=== PATIENT | male | born 1970 ===

== ENCOUNTER 2020-02-25 18:22 | Inpatient (IN) | payer SELFPAY ==
[~2020-02-25] VITALS: Ht 188 cm; Wt 97.0 kg
[~2020-02-25 18:22] MED LIST: AUGMENTIN875 MG OR
--- NOTE | 2020-02-25 18:50 | NUR ---
PATIENT TO ROOM VIA WHEELCHAIR.
--- NOTE | 2020-02-25 19:47 | NUR ---
SWABS OBTAINED. BCX1. TOLERATED WELL.
[2020-02-25 20:22] LABS: HEMATOCRIT 46.1 % (39.0-50.0); HEMOGLOBIN 14.7 g/dl (14.0-18.0); IMMATURE GRANULOCYTES 0.2 % (0.0-5.0); MEAN CELL VOLUME 80.7 fL CALC (80.0-100.0); MEAN CORPUSCULAR HGB 25.7 pG CALC (26.0-32.0); MEAN CORPUSCULAR HGB CONC 31.9 g/dL CAL (32.0-36.0); RED BLOOD COUNT 5.71 mill/uL (4.70-6.10); RED CELL DISTRI WIDTH 12.1 % (11.5-15.5)
[2020-02-25 20:23] LABS: URINE BILIRUBIN - DIPSTICK NEGATIVE (NEGATIVE); URINE BLOOD DIPSTICK NEGATIVE (NEGATIVE); URINE COLOR YELLOW; URINE GLUCOSE - DIPSTICK 500 mg/dL (NEGATIVE); URINE KETONE 15 mg/dL (NEGATIVE); URINE LEUK ESTERASE NEGATIVE (NEGATIVE); URINE NITRITE - DIPSTICK NEGATIVE (Negative); URINE PH 5.5 (4.5-8.0); URINE PROTEIN - DIPSTICK 100 mg/dL (NEG-TRACE); URINE SPECIFIC GRAVITY >=1.030; URINE UROBILINOGEN - DIPSTICK 0.2 E.U./dL (0.2)
[2020-02-25 20:34] LABS: URINE RBC 0-2 RBC/hpf (0-5); URINE WBC 0-2 WBC/hpf (0-5)
[2020-02-25 20:38] LABS: ALBUMIN 3.8 g/dL (3.2-5.0); ALKALINE PHOSPHATASE 86 u/l (38-126); ANION GAP 14 (6-22 (CALC)); BILIRUBIN, TOTAL 0.7 mg/dL (0.0-1.4); BUN 18 mg/dL (9-20); BUN/CREATININE RATIO 15 (12-20 (CALC)); CARBON DIOXIDE 27 mmol/l (22-30); CHLORIDE 91 mmol/l (95-108); CREATININE 1.2 mg/dL (0.7-1.3); GFR > 60 ML/MIN (>=60 (CALC)); GFR FOR AFR.AMER. > 60 ML/MIN (>=60 (CALC)); POTASSIUM 4.8 mmol/l (3.5-5.1); SGOT/AST 34 u/l (17-59); SODIUM 127 mmol/l (137-146); TOTAL PROTEIN 7.4 g/dL (6.3-8.2)
--- NOTE | 2020-02-25 21:40 | NUR ---
RETURNED FROM X-RAY. NO CHANGE IN EXAM.
--- NOTE | 2020-02-25 22:30 | NUR ---
NO C/O.VSS. RESTING MORE COMFORTABLY.
--- NOTE | 2020-02-26 00:30 | NUR ---
AROUSES EASILY TO VOICE. NO C/O.
--- NOTE | 2020-02-26 01:30 | NUR ---
TEMP REMAINS NORMAL. VSS. SLEEPING QUIETLY.
[2020-02-26] MEDS ORDERED: AMOXICILLIN500 M2 PO (02:37)
--- NOTE | 2020-02-26 03:16 | NUR ---
SLEEPING. NAD. RESPIRATIONS EVEN AND UNLABORED,
--- NOTE | 2020-02-26 05:16 | NUR ---
LABS DRAWN AND TAKEN TO DEPT. PT UP TO BSC. STATES FEELING BETTER.
[2020-02-26 05:59] LABS: HEMATOCRIT 43.2 % (39.0-50.0); HEMOGLOBIN 13.7 g/dl (14.0-18.0); IMMATURE GRANULOCYTES 0.4 % (0.0-5.0); MEAN CELL VOLUME 81.8 fL CALC (80.0-100.0); MEAN CORPUSCULAR HGB 25.9 pG CALC (26.0-32.0); MEAN CORPUSCULAR HGB CONC 31.7 g/dL CAL (32.0-36.0); NEUT# 2.22 thou/uL (1.82-7.42); RED BLOOD COUNT 5.28 mill/uL (4.70-6.10); RED CELL DISTRI WIDTH 12.1 % (11.5-15.5)
[2020-02-26 06:30] LABS: ALBUMIN 3.2 g/dL (3.2-5.0); ALKALINE PHOSPHATASE 70 u/l (38-126); ANION GAP 11 (6-22 (CALC)); BILIRUBIN, TOTAL 0.6 mg/dL (0.0-1.4); BUN 16 mg/dL (9-20); BUN/CREATININE RATIO 17 (12-20 (CALC)); CARBON DIOXIDE 28 mmol/l (22-30); CHLORIDE 95 mmol/l (95-108); GFR > 60 ML/MIN (>=60 (CALC)); GFR FOR AFR.AMER. > 60 ML/MIN (>=60 (CALC)); POTASSIUM 4.3 mmol/l (3.5-5.1); SGOT/AST 30 u/l (17-59); SODIUM 130 mmol/l (137-146); TOTAL PROTEIN 6.5 g/dL (6.3-8.2)
--- NOTE | 2020-02-26 07:00 | NUR ---
RECIEVED CARE OF PT IN NO DISTRESS, RESTING IN BED WITH EYES CLOSED. ALERT AND ORIENTED. LUNGS CLEAR. NO COMPLAINTS. DENIES COUGH.DISCUSSED POC AND BEDHOLD IN ED. PT STATES UNDERSTANDING. GATORADE AND WATER BROUGHT TO BEDSIDE.
--- NOTE | 2020-02-26 09:00 | NUR ---
PT CONSUMED 25% OF BREAKFAST, STATES APPETTITE DECREASED. TAKING PO FLUIDS WELL. NO RESP DISTRESS OR CP. PT 96% ON RA. LUNGS CLEAR. WARM BLANKET FOR COMFORT.
--- NOTE | 2020-02-26 11:49 | NUR ---
REPORT REC FROM BETHANY MAHER
--- NOTE | 2020-02-26 11:55 | NUR ---
TO ROOM 290 VIA WHEELCHAIR. PT AMBULATED TO BED WITH STEADY GAIT. PATT ARGUELLES AT BEDSIDE.
--- NOTE | 2020-02-26 12:15 | NUR ---
PT ARRIVED TO MS UNIT VIA WC IN STABLE CONDITION. A&O X3. NO DISTRESS NOTED. PT DENIES ANY SOB OR COUGH AT THIS TIME. CLEAR BREATH SOUNDS UPON AUSCULTATION. SKIN INTACT. NO OTHER NEEDS AT THIS TIME. ORIENTED PT TO ROOM. EXPLAINED REASONING BEHIND ISOLATION PRECAUTIONS, PT VERBALIZED UNDERSTANDING. ASSESSMENT COMPLETED. DISCUSSED POC. CALL LIGHT IN REACH. CONTINUE TO MONITOR.
[2020-02-26 12:20] VITALS: BP 110/66
[2020-02-26 15:10] VITALS: BP 107/66
--- NOTE | 2020-02-26 17:00 | NUR ---
PT LAYING IN BED. NO DISTRESS OR NEEDS AT THIS TIME. CALL LIGHT IN REACH CONTINUE TO MONITOR
[2020-02-26 19:25] VITALS: BP 92/59
--- NOTE | 2020-02-26 20:38 | NUR ---
PT MEDICATED ORDERS PROVIDE AND ASSESSMENT COMPLETED AT THIS TIME. PT REQUESTING A SNACK/WILL FOLLOW-UP W/SECOND ANTIBIOTIC ADMINISTRATION AND SNACK REQUESTED. ANITIBIOTIC THERAPY ADMINISTERED AT THIS TIME.NO DISTRESS NOTED, PT DENIES ANY PAIN/N/V OR SOB.
--- NOTE | 2020-02-27 04:20 | NUR ---
I ENTERED ROOM, PT WAS SLEEPING. I TURNED ON A SMALL LIGHT, EMPTIED 900CC OF CLEAR YELLOW URINE FROM URINAL. ASKED PT IF I COULD DRAW BLOOD TO SEND TO THE LAB FOR MORNING LABS, HE SHOOK HIS HEAD YES. PT APPEARED HALF ASLEEP SO I ASKED THREE TIMES FOR PERMISSION TO STICK HIM FOR BLOOD, EACH TIME HE SHOOK HIS HEAD YES, TECHNICAL CONSULTANT WAS IN OBTAINING V/S ON OTHER ARM. UPON STICKING PT W/BUTTERFLY, I OBTAINED ONE TUBING OF BLOOD AND PT BECAME BELIGERENT AND STATED HE WON'T BE STUCK AGAIN, I ASKED IF HE WANTED ME TO REMOVE NEEDLE, HE REPLIED, "NO YOU HAVE IT NOW, BUT NO MORE STICKING." PT WAS BELIGERENT AND SWEARING AT ME. I OBTAINED WHAT I COULD (ONLY ONE AND A HALF TUBES) AND INFORMED PT THAT IT WAS NOT COMPLETE LABS, BUT HE REFUSED ANY FURTHER STICKS. I INFORMED PT THAT HE HAS THE RIGHT TO REFUSE ANY TREATMENT, LAB DRAWS OR MEDICATIONS AT ANYTIME. HE DID NOT RESPOND. I TURNED LIGHTS DOWN AND LEFT THE ROOM WITH PT IN BED WITH LIGHTS OUT AND CALL LIGHT W/IN REACH.
[2020-02-27 04:22] VITALS: BP 100/66
[2020-02-27 05:36] LABS: HEMATOCRIT 42.3 % (39.0-50.0); HEMOGLOBIN 12.7 g/dl (14.0-18.0); IMMATURE GRANULOCYTES 0.6 % (0.0-5.0); MEAN CELL VOLUME 86.3 fL CALC (80.0-100.0); MEAN CORPUSCULAR HGB 25.9 pG CALC (26.0-32.0); NEUT# 3.24 thou/uL (1.82-7.42); RED BLOOD COUNT 4.9 mill/uL (4.70-6.10); RED CELL DISTRI WIDTH 12.2 % (11.5-15.5)
[2020-02-27 08:13] VITALS: BP 100/66
--- NOTE | 2020-02-27 08:13 | NUR ---
PT SITTING IN BED. A&O X3. NO DISTRESS NOTED. PT DENIES ANY SOB AT THIS ITME. ASSESSMENT COMPLETED. DISCUSSED POC. CALL LIGHT IN REACH. CONTINUE TO MONITOR.
[2020-02-27 11:00] VITALS: BP 99/61
[2020-02-27] MEDS ORDERED: ZITHROMAX250 MG PO (14:57)
[2020-02-27] MEDS ORDERED: METFORMIN500 M2 PO (14:57)
--- NOTE | 2020-02-27 15:33 | NUR ---
D/C INSTRUCTIONS GIVEN TO PT. IV INTACT UPON REMOVAL.
--- NOTE | 2020-02-27 16:21 | NUR ---
Discharge instructions given. Patient verbalizes understanding of same. Discharged in stable condition via Wheelchair to Home with staff. All belongings sent with pt.
== END 2020-02-27 17:00 | disposition home or self-care (01) | DRG 177 ==
LOC: ED 18:22 → ED-I 22:27 → ED 22:42 → ED-I 22:43 → MS2 02-26 11:14
PROVIDERS: ADMIT Internal Medicine; ATTEND Internal Medicine
DX: U07.1 COVID-19 (principal); J12.89 Other viral pneumonia; J02.0 Streptococcal pharyngitis; E11.9 Type 2 diabetes mellitus without complications
CPT/HCPCS: J1650; Q9967

== ENCOUNTER 2020-03-01 22:38 | Inpatient (IN) | payer SELFPAY ==
[~2020-03-01] VITALS: Ht 188 cm; Wt 80.0 kg
[~2020-03-01 22:38] MED LIST changes: +AMOXICILLIN500 M2 PO; +METFORMIN500 M2 PO; +ZITHROMAX250 MG PO
--- NOTE | 2020-03-01 23:02 | NUR ---
PATIENT AMBUALTORY FROM WAITING ROOM TO ROOM 13 WITHOUT ANY SOB, LABORED RESPIRATIONS, OR TACHYPNEA. PATIENT STATES HE IS NOT FEELING BETTER SINCE BEING DISCHARGED HOME 3 DAYS AGO. ALSO STATES HE HAS NOT FILLED ANY RX BECAUSE HE DOESN'T HAVE ANY MONEY. TRIAGE COMPLETED AT BEDSIDE. AWAITING MD BURGER.
--- NOTE | 2020-03-01 23:40 | NUR ---
IV ACCESS OBTAINED AND EKG COMPLETED, PT STATES GET ALL THE BLOOD YOU WANT NOW CAUSE YA'LL AIN'T GONNA BE POKING ME ALL NIGHT". COMFORT MEASURES PROVIDED, AWARE OF NEED FOR URINE SPECIMEN,
[2020-03-01 23:46] LABS: HEMATOCRIT 42.2 % (39.0-50.0); HEMOGLOBIN 13.4 g/dl (14.0-18.0); IMMATURE GRANULOCYTES 0.8 % (0.0-5.0); MEAN CELL VOLUME 81.9 fL CALC (80.0-100.0); MEAN CORPUSCULAR HGB CONC 31.8 g/dL CAL (32.0-36.0); NEUT# 4.53 thou/uL (1.82-7.42); RED BLOOD COUNT 5.15 mill/uL (4.70-6.10); RED CELL DISTRI WIDTH 12.1 % (11.5-15.5)
[2020-03-02] VITALS (8 sets, daily range): BP systolic 81–113; BP diastolic 65–81
[2020-03-02 00:14] LABS: ALBUMIN 3.2 g/dL (3.2-5.0); ALKALINE PHOSPHATASE 85 u/l (38-126); ANION GAP 11 (6-22 (CALC)); BILIRUBIN, TOTAL 0.7 mg/dL (0.0-1.4); BUN 12 mg/dL (9-20); BUN/CREATININE RATIO 15 (12-20 (CALC)); CARBON DIOXIDE 25 mmol/l (22-30); CHLORIDE 98 mmol/l (95-108); CREATININE 0.8 mg/dL (0.7-1.3); GFR > 60 ML/MIN (>=60 (CALC)); GFR FOR AFR.AMER. > 60 ML/MIN (>=60 (CALC)); POTASSIUM 4.3 mmol/l (3.5-5.1); SGOT/AST 31 u/l (17-59); SODIUM 130 mmol/l (137-146); TOTAL PROTEIN 6.6 g/dL (6.3-8.2)
[2020-03-02 00:23] LABS: MYOGLOBIN 29 ng/mL (0 - 121)
--- NOTE | 2020-03-02 00:26 | NUR ---
PT RESING NO S/S OF DISTRESS NOTED, AWARE THAT PT REFUSED TO STAND FOR 2 VIEW CXR IN RADIOLOGY DESPITE BEING ABLE OT AMBULATED TO ROOM ON ARRIVAL.
[2020-03-02 00:43] LABS: URINE BILIRUBIN - DIPSTICK NEGATIVE (NEGATIVE); URINE BLOOD DIPSTICK NEGATIVE (NEGATIVE); URINE COLOR YELLOW; URINE GLUCOSE - DIPSTICK >=1000 mg/dL (NEGATIVE); URINE KETONE NEGATIVE (NEGATIVE); URINE LEUK ESTERASE NEGATIVE (NEGATIVE); URINE NITRITE - DIPSTICK NEGATIVE (Negative); URINE PROTEIN - DIPSTICK NEGATIVE (NEG-TRACE); URINE SPECIFIC GRAVITY 1.015; URINE UROBILINOGEN - DIPSTICK 0.2 E.U./dL (0.2)
--- NOTE | 2020-03-02 00:47 | NUR ---
PT REFUSED ABG, AWARE.
--- NOTE | 2020-03-02 01:02 | NUR ---
PT AWARE OF PLANNED ADMISSION.
[2020-03-02 01:08] LABS: C-REACTIVE PROTEIN 15.6 mg/dL (0-0.9)
--- NOTE | 2020-03-02 01:22 | NUR ---
ADMISSION ASSESSMENT COMPLETED, PT AWARE OF HOLDING IN ER UNTIL BED AVAILABLE, LUNGS DIMINSHED WITH NO SOB NOTED AT REST PT COMPLAINS OF EXERTIONAL DYSPNEA, PULSE OX 97% ON RA, NO TELEMETRY ORDERED, SKIN WARM DRY AND INTACT, IV ACCESS INTACT, RESTING IN BED, WATCHING TELEVISION, PT WAS D/C'D RECENTLY FROM THE HOSPITAL AND ADMITS THAT HE DID NOT FOLLOW UP AND DID NOT FILL HIS PRESCRIPTIONS, COMFORT MEASURES PROVIDED AND CALL BENITES WITHIN REACH.
--- NOTE | 2020-03-02 02:04 | NUR ---
PO SNACK PROVIDED
--- NOTE | 2020-03-02 03:39 | NUR ---
PT RESTING WITH EYES CLOSED, OFFERS NO COMPLAINTS, CALL BENITES WITHIN REACH, NO S/S OF DISTRESS NOTED
--- NOTE | 2020-03-02 07:00 | NUR ---
REPORT FROM NIKA BARROW. PT RESTING COMFORTABLY IN STRETCHER WITH EYES CLOSED. PT REQUEST BREAKFAST AND INFORMED OF TIME TRAYS ARE SERVED. CALL BENITES WITHIN REACH.
--- NOTE | 2020-03-02 08:15 | NUR ---
BP 85/65, HEART RATE 108. PT DENIES ANY DIZZINESS. BIALTERAL LS CLEAR. DR LOZANO CONTACTED AND TELEPHONE ORDER FOR NORMAL SALINE BOLUS RECEIVED.
--- NOTE | 2020-03-02 09:00 | NUR ---
IV FLUIDS INFUSING, IV SITE FREE FROM REDNESS OR EDEMA. PT DENIES ANY SOB OR NEEDS AT THIS TIME.
--- NOTE | 2020-03-02 10:00 | NUR ---
PATIENT REPORT TO NIKA INGRAM.
--- NOTE | 2020-03-02 11:05 | NUR ---
PT TRANSPORTED TO ROOM 288 VIA WHEELCHIAR IN STABLE CONDITION.
--- NOTE | 2020-03-02 11:05 | NUR ---
Admission Note Report Given to: JUAN JOSE Transported by: X Wheelchair Stretcher Transported with: X Nurse Transporter X Patent IV O2 Core Worker Location: ICU X [facility]2 PT TO ROOM 288 IN STABLE CONDITION.
--- NOTE | 2020-03-02 11:09 | NUR ---
PT ARRIVED TO UNIT VIA WHEELCHAIR WITH ER STAFF; ALERT AND ORIENTED. DENIES PAIN. RESPIRTIONS EVEN AND UNLABORED ON ROOM AIR; SPO2 93%. DENIES SOB AND NAUSEA. VSS. IV FLUIDS INFUSING ON ARRIVAL; IV SITE APPEARS HEALTHY. ORIENTED TO ROOM AND CALL LIGHT SYSTEM. PLAN OF CARE DISCUSSED. PT ENCOURAGED TO VERBALIZE CONCERNS. STATES UNDERSTANDING. SAFETY MEASURES IN PLACE. CALL LIGHT WITHIN REACH.
--- NOTE | 2020-03-02 11:47 | NUR ---
COVID SWAB OBTAINED AND SENT TO LAB.
--- NOTE | 2020-03-02 17:10 | NUR ---
PT INDEPENDENT IN ROOM; AMBULATED TO BATHROOM FOR BOWEL MOVEMENT. NO REQUESTS OR CONCERS AT THIS TIME.
--- NOTE | 2020-03-02 20:20 | NUR ---
ASSESSMENT COMPLETED. NO DISTRESS NOTED; DENIES NEEDS/PAIN. REFUSES LOVENOX AND STATES,"THAT HURTS,NO." ENCOURAGED TO CALL FOR ANY NEEDS. CALL LIGHT IS IN REACH. WILL CONTINUE TO MONITOR.
--- NOTE | 2020-03-02 23:15 | NUR ---
PT. UP WATCHING TV. NO DISTRESS NOTED; DENIES NEEDS/PAIN. ENCOURAGED TO CALL FOR ANY NEEDS. CALL LIGHT IS IN REACH.
--- NOTE | 2020-03-03 03:30 | NUR ---
RESTING IN BED WITH NO DISTRESS NOTED; DENIES NEEDS/PAIN. SCHED ANTIBITOIC HUNG. CORWIN LIGHT IS IN REACH.
[2020-03-03 03:53] VITALS: BP 119/75
--- NOTE | 2020-03-03 05:18 | NUR ---
RESTING IN BED WITH NO DISTRESS NOTED; DENIES NEEDS/PAIN. ENCOURAGED TO CALL FOR ANY NEEDS.
[2020-03-03 07:37] VITALS: BP 107/75
--- NOTE | 2020-03-03 07:37 | NUR ---
REPORT RECEIVED FROM NIKA AVILA. PT RESTING IN BED SEMI FOWLERS WITH EYES CLOSED AND NO SIGNS OF DISTRESS. RESPIRATIONS EVEN AND UNLABORED ON ROOM AIR. AWAKENS SPONTANEOUSLY. DENIES PAIN. SPO2 97%; PT DENIES SOB. IV FLUIDS INFUSING WITHOUT DIFFICULTY; IV SITE APPEARS HEALTHY. ACCU CHECK 240. PT ASKING IF HE HAS RECEIVED ANY MORE ABT ASSUMING THAT THEY WERE PO; EXPLAINED IVPB ABTS AND INDICATIONS; PT STATES UNDERSTANDING AND AGAIN BEFORE LEAVING ROOM PT REPEATS THE QUESTION. NURSE AGAIN EXPLAINED THAT HIS IV ABT INFUSED THROUGH HIS IV LINE AND ARE SCHEDULED ONCE DAILY. PT STATES, "OH YA, THATS RIGHT." PLAN OF CARE REVIEWED. PT ENCOURAGED TO VERBALIZE CONCERNS. STATES UNDERSTANDING. SAFETY MEASURES IN PLACE. CALL LIGHT WITHIN REACH.
--- NOTE | 2020-03-03 09:30 | NUR ---
LABS OBTAINED BY [facility] AND SENT TO LAB. PRIOR TO STICK PT STATES, "YOU'VE GOT ONE SHOT AND THATS IT." BLOOD WORK OBTAINED WITH ONE ATTEMPT.
[2020-03-03 09:56] LABS: HEMATOCRIT 38.1 % (39.0-50.0); HEMOGLOBIN 11.8 g/dl (14.0-18.0); IMMATURE GRANULOCYTES 0.9 % (0.0-5.0); MEAN CELL VOLUME 83.6 fL CALC (80.0-100.0); MEAN CORPUSCULAR HGB 25.9 pG CALC (26.0-32.0); NEUT# 4.1 thou/uL (1.82-7.42); RED BLOOD COUNT 4.56 mill/uL (4.70-6.10); RED CELL DISTRI WIDTH 12.2 % (11.5-15.5)
[2020-03-03 10:19] LABS: ALBUMIN 2.9 g/dL (3.2-5.0); ALKALINE PHOSPHATASE 74 u/l (38-126); ANION GAP 10 (6-22 (CALC)); BILIRUBIN, TOTAL 0.3 mg/dL (0.0-1.4); BUN 9 mg/dL (9-20); BUN/CREATININE RATIO 12 (12-20 (CALC)); C-REACTIVE PROTEIN 4.9 mg/dL (0-0.9); CARBON DIOXIDE 26 mmol/l (22-30); CHLORIDE 102 mmol/l (95-108); CREATININE 0.8 mg/dL (0.7-1.3); GFR > 60 ML/MIN (>=60 (CALC)); GFR FOR AFR.AMER. > 60 ML/MIN (>=60 (CALC)); POTASSIUM 4.8 mmol/l (3.5-5.1); SGOT/AST 16 u/l (17-59); SODIUM 133 mmol/l (137-146); TOTAL PROTEIN 5.9 g/dL (6.3-8.2)
[2020-03-03 11:46] VITALS: BP 115/78
--- NOTE | 2020-03-03 13:30 | NUR ---
PT C/O NEW ONSET 5/10 DULL CHEST PAIN MIDSTERNAL THAT GETS WORSE WHEN HE BREATHES DEEP AND SUBSIDES BETWEEN RESPIRATIONS. DENIES SOB AND NAUSEA. PAIN DOES NOT RADIATE. VSS. EKG NSR. TROPONIN OBTAINED AND SENT TO LAB.
[2020-03-03 13:41] VITALS: BP 115/78
--- NOTE | 2020-03-03 13:45 | NUR ---
CHEST PAIN HAS SUBSIDED AT THIS TIME. PT NOW REPORTS THAT HE HAS HX OF BLEEDING ULCERS IN HIS STOMACH AND HAS HAD 3 LOOSE DIARRHEA BOWEL MOVEMENTS WITH BLOOD IN THEM. HE ALSO STATES THAT HE TOOK A 20 MG PRILOSEC TABLET FROM HIS PERSON BELONGINGS. MED REMOVED FROM BEDSIDE. PT UNABLE TO REPORT IF BLOOD WAS BRIGHT OR DARK. HAT PLACED IN BACK OF TOILET AND PT AWARE THAT A STOOL SAMPLE IS NEEDED. COURTESY VAN DRIVER NOTIFIED.
--- NOTE | 2020-03-03 14:08 | NUR ---
PT USED CALL LIGHT TO REPORT THAT HE FEELS BLOATED. ABDOMEN SOFT, DISTENDED, NON TENDER WITH GOOD BS X 4.
[2020-03-03 14:39] LABS: HEMATOCRIT 37.4 % (39.0-50.0); HEMOGLOBIN 11.6 g/dl (14.0-18.0); MEAN CELL VOLUME 83.3 fL CALC (80.0-100.0); MEAN CORPUSCULAR HGB 25.8 pG CALC (26.0-32.0); RED BLOOD COUNT 4.49 mill/uL (4.70-6.10); RED CELL DISTRI WIDTH 12.3 % (11.5-15.5)
[2020-03-03 15:47] VITALS: BP 123/79
--- NOTE | 2020-03-03 17:50 | NUR ---
DR. LOZANO AT BEDSIDE. PT NEEDS REMINDING OF HIS MEDICATIONS AND WHAT THEY ARE FOR. PT HAS ASKED NURSE MULTIPLE TIMES WHAT THE METFORMIN IS FOR. MEDICATIONS EXPLAINED EACH TIME. EDUCATED ON DIABETIC DIET.
[2020-03-03 20:15] VITALS: BP 128/79
--- NOTE | 2020-03-03 20:15 | NUR ---
ASSESSMENT COMPLETED. NO DISTRESS NOTED. DENIES NEEDS/PAIN. DENIES ANY BM'S THUS FAR AND IS AWARE OF NEED FOR STOOL SPECIMEN. VOICES NO COMPLAINTS VS OBTAINED AND ACCUCHECK. ENCOURAGED TO CALL FOR ANY NEEDS. CALL LIGHT IS IN REACH. WILL CONTINUE TO MONITOR.
--- NOTE | 2020-03-03 21:20 | NUR ---
SCHED NOVOLOG GIVEN. PT. STILL REPORTING NO BM.
--- NOTE | 2020-03-03 23:40 | NUR ---
PT. COMING BACK TO BED AFTER HIS SHOWER. NEW COBAN APPLIED TO IV SITE. DENIES NEEDS. CALL LIGHT IS IN REACH. WILL CONTINUE TO MONITOR.
--- NOTE | 2020-03-04 02:05 | NUR ---
RESTING IN BED WITH EYES CLOSED. NO DISTRESS NOTED.
[2020-03-04 03:51] VITALS: BP 99/57
--- NOTE | 2020-03-04 03:51 | NUR ---
PT. RESTING IN BED WITH NO DISTRESS NOTED; DENIES NEEDS/PAIN. ENCOURAGED TO CALL FOR ANY NEEDS. CALL LIGHT IS IN REACH. REPORTS NO BM'S TONIGHT.
--- NOTE | 2020-03-04 05:55 | NUR ---
NO DISTRESS NOTED; DENIES NEEDS/PAIN. ENCOURAGED TO CALL FOR ANY NEEDS. IV SITE SL AND FLUSHED WITH NS.
[2020-03-04 08:05] VITALS: BP 109/78
--- NOTE | 2020-03-04 09:27 | NUR ---
REPORT RECEIVED FROM NIKA AVILA. PT RESTING IN BED WITH EYES CLOSED AND NO SIGNS OF DISTRESS. RESPIRATIONS EVEN AND UNLABORED ON ROOM AIR. DENIES PAIN. SPO2 100%; PT DENIES SOB. IV SITE APPEARS HEALTHY. ACCU CHECK 206. PT PLAN OF CARE REVIEWED. PT ENCOURAGED TO VERBALIZE CONCERNS. PT STATES UNDERSTANDING. SAFETY MEASURES IN PLACE. CALL LIGHT WITHIN REACH.
--- NOTE | 2020-03-04 10:39 | NUR ---
SCHEDULED NOVOLOG GIVEN. PT. STILL REPORTING NO BM. PT CONTINUES BEFORE, NO CHANGE IN STATUS; NO EVIDENCE OF DISTRESS. CALL BENITES WITHIN REACH.
[2020-03-04] MEDS ORDERED: PANTOPRAZOLE SO40 M1 PO (12:02)
[2020-03-04] MEDS ORDERED: METFORMIN500 M2 PO (12:02)
[2020-03-04] MEDS ORDERED: ZITHROMAX250 MG PO (12:02)
--- NOTE | 2020-03-04 13:37 | NUR ---
RESTING IN BED WITH EYES CLOSED. NO DISTRESS NOTED.
--- NOTE | 2020-03-04 14:45 | NUR ---
IV site discontinued, cath intact. No edema , no redness, voices no discomfort.
--- NOTE | 2020-03-04 15:17 | NUR ---
Discharge instructions given. Patient verbalizes understanding of same. Discharged in stable condition via Wheelchair to Home with family. All belongings sent with pt.
--- NOTE | 2020-03-04 15:17 | NUR ---
PT EDUCATED ON DIABETES, MEDICATION, BLOD SUGAR CHECKS. RETURN DEMONSTRATION. PT STATE UNDEERSTANDING. MEDICATION, GLUCOSE METER, AND TEST STRIPS PROVIDED BY PHARMACY.
== END 2020-03-04 15:03 | disposition home or self-care (01) | DRG 177 ==
LOC: ED 22:38 → ED-I 03-02 00:50 → ED 03-02 01:10 → ED-I 03-02 01:11 → MS2 03-02 09:00
PROVIDERS: Emergency Medicine; Nurse Practitioner Family; ADMIT Internal Medicine; ATTEND Internal Medicine
DX: U07.1 COVID-19 (principal); J12.89 Other viral pneumonia; E11.9 Type 2 diabetes mellitus without complications; I95.9 Hypotension, unspecified; T38.3X6A Underdosing of insulin and oral hypoglycemic [antidiabetic] drugs, initial encounter; T36.3X6A Underdosing of macrolides, initial encounter; R19.5 Other fecal abnormalities; Z91.128 Patient's intentional underdosing of medication regimen for other reason
CPT/HCPCS: J1650; S0164

== ENCOUNTER 2024-05-10 18:18 | Emergency (ER) | payer SELFPAY ==
[~2024-05-10] VITALS: Ht 188 cm; Wt 106.0 kg
[~2024-05-10 18:18] MED LIST changes: +PANTOPRAZOLE SO40 M1 PO
[2024-05-10 18:27] VITALS: BP 114/82
[2024-05-10 18:30] VITALS: BP 99/73
[2024-05-10 18:31] VITALS: BP 117/81
[2024-05-10 18:34] LABS: BASO% 0.6 % (0-3); EOS% 1.1 % (0-8); IMMATURE GRANULOCYTES 0.2 % (0.0-5.0); LYMPH% 44.4 % (15-41); MEAN CELL VOLUME 85.2 fL CALC (80.0-100.0); MEAN CORPUSCULAR HGB 26.9 pG CALC (26.0-32.0); MEAN CORPUSCULAR HGB CONC 31.6 g/dL CAL (32.0-36.0); MONO% 8.8 % (2-13); NEUT# 2.96 thou/uL (1.82-7.42); NEUT% 44.9 % (42-76); RED BLOOD COUNT 5.42 mill/uL (4.70-6.10); RED CELL DISTRI WIDTH 12.5 % (11.5-15.5)
[2024-05-10] MEDS ORDERED: SODIUM CHLORIDE 0.9% 1,000 ML IV ONE (18:35)
[2024-05-10] MEDS ORDERED: ASPIRIN 81 MG/TAB PO ONE (18:35)
[2024-05-10 18:44] LABS: HEMATOCRIT 46.2 % (39.0-50.0); HEMOGLOBIN 14.6 g/dl (14.0-18.0)
[2024-05-10 18:51] LABS: CREATININE 1.2 mg/dL (0.7-1.3); POTASSIUM 3.9 mmol/l (3.5-5.1)
[2024-05-10 18:58] LABS: ALBUMIN 4.7 g/dL (3.2-5.0); BILIRUBIN, TOTAL 1.2 mg/dL (0.2-1.3); TOTAL PROTEIN 9.1 g/dL (6.3-8.2)
[2024-05-10 19:00] VITALS: BP 108/83
[2024-05-10] MEDS ORDERED: ACETAMINOPHEN 500 MG TAB PO ONE (19:10)
[2024-05-10] MEDS ORDERED: KETOROLAC TROMETHAMINE 30 MG/ML SDV IV ONE (19:10)
[2024-05-10] MEDS ORDERED: NAPROXEN375 MG PO (19:12)
[2024-05-10 19:30] VITALS: BP 145/92
[2024-05-10 19:55] VITALS: BP 108/83
== END 2024-05-10 19:55 | disposition home or self-care (01) | DRG 313 ==
LOC: ED 18:18
PROVIDERS: Family Medicine
DX: R07.89 Other chest pain (principal); E11.65 Type 2 diabetes mellitus with hyperglycemia; I10 Essential (primary) hypertension; Z79.84 Long term (current) use of oral hypoglycemic drugs